=== PATIENT | female | born 1995 | race Caucasian/White ===

== ENCOUNTER 2017-11-08 20:07 | Emergency (ER) | payer MEDICAID ==
[2017-11-08 21:55] LABS: ADD MAN DIFF? NO
[2017-11-08 22:04] LABS: ADD UMIC YES; UR ASCORBIC ACID NEGATIVE (NEGATIVE); UR BILIRUBIN (Dip) NEGATIVE (NEGATIVE); UR BLOOD (Dip) 2+ mg/dL (NEGATIVE); UR CLARITY CLEAR (CLEAR); UR COLOR YELLOW (YELLOW); UR GLUCOSE (Dip) NEGATIVE (NEGATIVE); UR KETONES (Dip) NEGATIVE (NEGATIVE); UR LEUKOCYTE ESTERASE (Dip) 1+ Leu/ul (NEGATIVE); UR NITRITE (Dip) NEGATIVE (NEGATIVE); UR RBC 2 /HPF (0-5); UR SPECIFIC GRAVITY (Dip) 1.009 (1.003-1.030); UR SQUAMOUS EPITHELIAL CELL FEW /HPF (FEW); UR TOTAL PROTEIN (Dip) NEGATIVE (NEGATIVE); UR UROBILINOGEN (Dip) NEGATIVE (NEGATIVE); UR WBC 4 /HPF (0-5)
[2017-11-08 22:05] LABS: WHITE BLOOD COUNT 13.2 10^3/ul (4.8-10.8)
[2017-11-08 22:05] LABS: BASOPHILS % 0.2 % (0.0-2.0); EOSINOPHILS # 0.1 10^3/ul (0.0-0.5); EOSINOPHILS % 0.9 % (0.0-7.0); HEMOGLOBIN 11.8 g/dl (12.0-16.0); IMMATURE GRANS % (M) 0.8 %; LYMPHOCYTES # 2.6 10^3/ul (0.8-2.9); LYMPHOCYTES % 19.9 % (15.0-51.0); MEAN CORPUSCULAR HEMOGLOBIN 28.4 pg (29.0-33.0); MEAN CORPUSCULAR HGB CONC 33.7 g/dl (32.0-37.0); MEAN CORPUSCULAR VOLUME 84.1 fl (82.0-101.0); MEAN PLATELET VOLUME 9.8 fl (7.4-10.4); MONOCYTE # 0.7 10^3/ul (0.3-0.9); MONOCYTES % 5.4 % (0.0-11.0); NEUTROPHIL # 9.6 10^3/ul (1.6-7.5); NEUTROPHILS % 72.8 % (39.0-77.0); PLATELET COUNT 291 10^3/UL (140-415); RED BLOOD COUNT 4.16 10^6/ul (4.20-5.40); RED CELL DISTRIBUTION WIDTH 12.7 % (11.5-14.5)
== END 2017-11-08 22:22 | disposition home or self-care (01) ==
LOC: E/R 20:07
DX: Z00.00 Encounter for general adult medical examination without abnormal findings (principal); Z3A.16 16 weeks gestation of pregnancy
CPT/HCPCS: 36415; 81001; 85025; 87086; 99283

== ENCOUNTER 2018-04-10 05:18 | Inpatient (IN) | payer MEDICAID ==
[2018-04-10] MEDS ORDERED: LACTATED RINGER'S 1,000 ML IV (06:11)
[2018-04-10] MEDS ORDERED: MISOPROSTOL 200 MCG TAB PR ×2 (06:30→13:30)
[2018-04-10] MEDS ORDERED: BUTORPHANOL 2 MG INJ IV (06:30)
[2018-04-10] MEDS ORDERED: CARBOPROST 250 MCG INJ IM ×2 (06:30→13:30)
[2018-04-10] MEDS ORDERED: LIDOCAINE 1% (MPF) 30 ML INJ INJ (06:30)
[2018-04-10] MEDS ORDERED: METHYLERGONOVINE 0.2 MG INJ IM (06:30)
[2018-04-10] MEDS ORDERED: OXYTOCIN 30 UNITS/LR 500 ML IV ×2 (06:30→13:30)
[2018-04-10] MEDS: AMPICILLIN 2 GM/NS (PMX) 100 ML IV (06:46)
[2018-04-10] MEDS: LACTATED RINGER'S 1,000 ML IV ×2 (06:46→11:23)
[2018-04-10 07:51] LABS: ADD MAN DIFF? NO
[2018-04-10 07:55] LABS: WHITE BLOOD COUNT 9.5 10^3/ul (4.8-10.8)
[2018-04-10 07:55] LABS: BASOPHILS % 0.4 % (0.0-2.0); EOSINOPHILS # 0.1 10^3/ul (0.0-0.5); EOSINOPHILS % 0.9 % (0.0-7.0); HEMATOCRIT 33.3 % (37.0-47.0); HEMOGLOBIN 10.7 g/dl (12.0-16.0); LYMPHOCYTES # 2.5 10^3/ul (0.8-2.9); LYMPHOCYTES % 26.6 % (15.0-51.0); MEAN CORPUSCULAR HEMOGLOBIN 24.8 pg (29.0-33.0); MEAN CORPUSCULAR HGB CONC 32.1 g/dl (32.0-37.0); MEAN CORPUSCULAR VOLUME 77.3 fl (82.0-101.0); MONOCYTE # 0.7 10^3/ul (0.3-0.9); MONOCYTES % 6.9 % (0.0-11.0); NEUTROPHIL # 6.1 10^3/ul (1.6-7.5); NEUTROPHILS % 63.7 % (39.0-77.0); PLATELET COUNT 228 10^3/UL (140-415); RED BLOOD COUNT 4.31 10^6/ul (4.20-5.40); RED CELL DISTRIBUTION WIDTH 15.4 % (11.5-14.5)
[2018-04-10 08:24] LABS: PROTIME 12.3 Sec (11.9-14.9)
[2018-04-10 08:25] LABS: PARTIAL THROMBOPLASTIN TIME 28.6 Sec (23.0-35.0)
[2018-04-10 08:44] LABS: HEPATITIS B SURFACE ANTIGEN NEGATIVE (NEGATIVE)
[2018-04-10] MEDS: AMPICILLIN 1 GM/NS (PMX) 50 ML IV (10:30)
[2018-04-10] MEDS ORDERED: MINERAL OIL LIGHT 10 ML VIAL (11:22)
[2018-04-10] MEDS: OXYTOCIN 30 UNITS/LR 500 ML IV ×2 (13:27→13:33)
[2018-04-10] MEDS ORDERED: NA PHOSPHATE/BIPHOS 133 ML ENEMA PR (13:30)
[2018-04-10] MEDS ORDERED: DIBUCAINE 1% 30 GM OINT TOP (13:30)
[2018-04-10] MEDS ORDERED: MAGNESIUM HYDROXIDE 30ML CUP PO (13:30)
[2018-04-10] MEDS ORDERED: DIPHENHYDRAMINE 50 MG INJ IV (13:30)
[2018-04-10] MEDS ORDERED: ONDANSETRON 4 MG TAB PO (13:30)
[2018-04-10] MEDS ORDERED: ONDANSETRON 4 MG INJ IV (13:30)
[2018-04-10] MEDS ORDERED: SENNA/DOCUSATE NA (8.6MG/50MG) TAB PO (13:30)
[2018-04-10] MEDS ORDERED: HYDROCODONE/APAP (5/325) TAB PO (13:30)
[2018-04-10] MEDS ORDERED: DIPHENHYDRAMINE 25 MG CAP PO (13:30)
[2018-04-10] MEDS: IBUPROFEN 600 MG TAB PO ×2 (13:38→18:28)
[2018-04-10] MEDS: LANOLIN HPA 1 PKT TOP (16:25)
[2018-04-10] MEDS: WITCH HAZEL/GLYCERIN PAD PR (16:25)
[2018-04-10] MEDS: BENZOCAINE 20% 56 ML SPRAY TOP (16:25)
[2018-04-10] MEDS: LACTATED RINGER'S 1,000 ML IV* ×2 (18:00→21:26)
[2018-04-10 18:10] LABS: RAPID PLASMA REAGIN NONREACTIVE (NR)
[2018-04-10] MEDS: SENNA/DOCUSATE NA (8.6MG/50MG) TAB PO (20:27)
[2018-04-10] MEDS: HYDROCODONE/APAP (5/325) TAB PO (20:28)
[2018-04-11] MEDS: IBUPROFEN 600 MG TAB PO ×4 (00:20→22:29)
[2018-04-11] MEDS: LACTATED RINGER'S 1,000 ML IV* ×3 (02:35→22:30)
[2018-04-11 07:46] LABS: ADD MAN DIFF? NO
[2018-04-11 07:53] LABS: BASOPHIL # 0.1 10^3/ul (0.0-0.1); BASOPHILS % 0.6 % (0.0-2.0); EOSINOPHILS # 0.2 10^3/ul (0.0-0.5); EOSINOPHILS % 1.2 % (0.0-7.0); HEMATOCRIT 29.7 % (37.0-47.0); HEMOGLOBIN 9.6 g/dl (12.0-16.0); LYMPHOCYTES # 3.6 10^3/ul (0.8-2.9); LYMPHOCYTES % 28.7 % (15.0-51.0); MEAN CORPUSCULAR HEMOGLOBIN 25.2 pg (29.0-33.0); MEAN CORPUSCULAR HGB CONC 32.3 g/dl (32.0-37.0); MEAN PLATELET VOLUME 10.9 fl (7.4-10.4); MONOCYTE # 0.8 10^3/ul (0.3-0.9); MONOCYTES % 6.4 % (0.0-11.0); NEUTROPHIL # 7.7 10^3/ul (1.6-7.5); NEUTROPHILS % 61.6 % (39.0-77.0); PLATELET COUNT 207 10^3/UL (140-415); RED BLOOD COUNT 3.81 10^6/ul (4.20-5.40); RED CELL DISTRIBUTION WIDTH 15.8 % (11.5-14.5)
[2018-04-11 07:53] LABS: WHITE BLOOD COUNT 12.6 10^3/ul (4.8-10.8)
[2018-04-11] MEDS: SENNA/DOCUSATE NA (8.6MG/50MG) TAB PO ×2 (13:07→22:02)
[2018-04-12] MEDS: IBUPROFEN 600 MG TAB PO ×3 (00:18→12:22)
[2018-04-12] MEDS: VARICELLA VACCINE LIVE/PF 1,350 UNIT/0.5 ML ML SC* (09:00)
[2018-04-12] MEDS: DIPHTH/TET/ACEL PERTUSS (ADULT) 0.5 ML VIAL IM* (09:00)
[2018-04-12] MEDS: MEASLES,MUMPS,RUBELLA VACCINE INJ SC* (09:00)
[2018-04-12] MEDS: SENNA/DOCUSATE NA (8.6MG/50MG) TAB PO (10:13)
== END 2018-04-12 16:05 | disposition home or self-care (01) | DRG 807 ==
LOC: OBT 05:18 → L-D 05:18 → OBT 06:05 → L-D 06:05 → PP1 14:45
PROVIDERS: Specialist
PROC: 10E0XZZ Delivery of Products of Conception, External Approach (ICD-10-PCS; principal; 2018-04-10)
DX: O69.81X0 Labor and delivery complicated by cord around neck, without compression, not applicable or unspecified (principal); O90.81 Anemia of the puerperium; D64.9 Anemia, unspecified; R10.31 Right lower quadrant pain; Z37.0 Single live birth; Z3A.00 Weeks of gestation of pregnancy not specified
CPT/HCPCS: 85025; 85610; 85730; 86592; 86850; 86900; 86901; 87340; 90716